=== PATIENT | male | born 1985 | race Hispanic/Latino ===

== ENCOUNTER 2020-03-03 19:52 | Emergency (ER) | payer SELFPAY ==
[~2020-03-03] VITALS: Ht 185.4 cm; Wt 102.1 kg
[2020-03-03] MEDS ORDERED: SODIUM CHLORIDE 0.9% 500ML 500 ML IV ONE (20:15)
[2020-03-03] MEDS ORDERED: PIPER-TAZ 3.375 GM 50 ML IV ONE (20:15)
[2020-03-03] MEDS ORDERED: HYDROCODONE/APAP 5MG-325MG TAB ONE (20:43)
[2020-03-03] MEDS ORDERED: KETOROLAC TROMETHAMINE 60 MG/2 ML VIAL IM ONE (20:45)
[2020-03-03] MEDS ORDERED: NAPROSYN500 MG PO (20:48)
--- NOTE | 2020-03-03 21:05 | Diagnostic Imaging Report ---
Left complete knee. CPT CODE: 35978. INDICATION: Fall, pain ^pain COMPARISON: None FINDINGS: The patient is status post ORIF of the patella. The hardware appears intact without surrounding lucency to suggest loosening. There is heterotopic bone formation surrounding the patella. A fracture plane is not visualized. There is mild patellofemoral compartment narrowing without osteophytic lipping. No joint effusion. The distal femur, proximal tibia, and proximal fibula are intact and normal in morphology. No degenerative changes of the medial lateral compartments. IMPRESSION: No acute traumatic pathology. Postoperative changes of the patella as described above without evidence of hardware failure. Signed by: Dr. Sandy Case MD on 03/03/2020 9:01 PM
[2020-03-03] MEDS ORDERED: HYDROCODONE/APAP 5MG-325MG TAB PO ONE (21:30)
== END 2020-03-03 21:30 | disposition home or self-care (01) ==
LOC: FSED 19:52
DX: M25.562 Pain in left knee (principal); F15.90 Other stimulant use, unspecified, uncomplicated
CPT/HCPCS: 73562; 99283; J1885; J7040